=== PATIENT | female | born 1980 | race Caucasian/White ===

== ENCOUNTER 2019-12-04 08:29 | Outpatient (CLI) | payer OTHER ==
[~2019-12-04] VITALS: Ht 152.4 cm; Wt 69.8 kg
[2019-12-04] VITALS (7 sets, daily range): BP systolic 116–140; BP diastolic 80–86; PULSE 71–86
[~2019-12-04 08:29] MED LIST: D3-5050000 IU PO
[2019-12-04] MEDS ORDERED: ESTARYLLA 35 MC1 TAB PO (08:42)
[2019-12-04 09:47] LABS: GLUCOSE,CSF 51 mg/dL (40-70); TOTAL PROTEIN,CSF 28 mg/dL (15-45)
--- NOTE | 2019-12-04 11:00 | NUR ---
DISCHARGE INSTRUCTIONS REVIEWED BY SID ROSEN.PT ESCORTED OUT BY SID ROSEN.
[2019-12-04 11:30] LABS: CSF APPEARANCE CLEAR; CSF COLOR COLORLESS; CSF MONONUCLEAR 64 % (70-100); CSF POLYMORPHONUCLEAR 36 % (0-6); CSF RBC 367 /mm3 (0-0)
== END 2019-12-04 12:28 | disposition home or self-care (01) ==
LOC: COL.RAD 08:29
PROVIDERS: Psychiatry & Neurology Neurology
DX: G37.9 Demyelinating disease of central nervous system, unspecified (principal)

== ENCOUNTER 2019-12-07 08:20 | Emergency (ER) | payer OTHER ==
[~2019-12-07] VITALS: Ht 152.4 cm; Wt 70.5 kg
[~2019-12-07 08:20] MED LIST changes: +ESTARYLLA 35 MC1 TAB PO
[2019-12-07 12:00] VITALS: BP 128/82; PULSE 67; TEMP 99
== END 2019-12-07 12:00 | disposition home or self-care (01) ==
LOC: COL.ER 08:20
DX: G97.1 Other reaction to spinal and lumbar puncture (principal)
CPT/HCPCS: J7030

== ENCOUNTER → 2020-07-23 | Outpatient (CLI) | payer OTHER | LOC: MC.RAD 09:14 | DX: Z12.31 Encounter for screening mammogram for malignant neoplasm of breast (principal) ==

== ENCOUNTER → 2023-10-22 | Outpatient (CLI) | payer BC | LOC: MC.RAD 07:54 | DX: N60.01 Solitary cyst of right breast (principal) ==